=== PATIENT | male | born 1985 | race American Indian/Alaskan Native ===

== ENCOUNTER 2017-11-29 15:19 | Emergency (ER) | payer OTHER ==
[2017-11-29 15:28] VITALS: BP 120/77
--- NOTE | 2017-11-29 15:44 | Emergency Department Report ---
Upper Extremity - HPI Chief Complaint: Extremity Injury, Upper Stated Complaint: RIGHT HAND PAIN Time Seen by Provider: 11/29/17 15:44 Upper Extremity: Left Hand, Left Index Finger Occurred When: >5 Days Severity: moderate Symptoms: Yes Pain with Movement, Yes Swelling, No Deformity, No Limited Range of Movement, No Numbness, No Weakness, No Bruising/Ecchymosis, No Laceration or Abrasion Other History: 32-year-old male past medical history none presents with complaint of right index finger pain. Patient states he sprained his finger while playing basketball. States that the ball hit his finger on his finger was extended and jammed it. This occurred a week ago. States he has some aching when he flexes and extends his finger. Denies injury to any other body part. Visibly ranging all his fingers. ED Review of Systems ROS: Stated complaint: RIGHT HAND PAIN Other details as noted in HPI Constitutional: denies: chills, fever Eyes: denies: eye pain, eye discharge, vision change ENT: denies: ear pain, throat pain Respiratory: denies: cough, shortness of breath, wheezing Cardiovascular: denies: chest pain, palpitations Endocrine: no symptoms reported Gastrointestinal: denies: abdominal pain, nausea, diarrhea Genitourinary: denies: urgency, dysuria Musculoskeletal: as per HPI (right index finger pain at MCP joint). denies: back pain, joint swelling, arthralgia Skin: denies: rash, lesions Neurological: denies: headache, weakness, paresthesias Psychiatric: denies: anxiety, depression Hematological/Lymphatic: denies: easy bleeding, easy bruising ED Past Medical Hx - Past Medical History Previous Medical History?: No - Surgical History Past Surgical History?: No - Social History Smoking Status: Current Every Day Smoker Substance Use Type: Alcohol - Medications Home Medications: Home Medications Medication Instructions Recorded Confirmed Last Taken Type Acetaminophen/Codeine [Tylenol #3] 1 tab PO Q6H PRN #15 tab 09/19/13 Unknown Rx Methocarbamol [Robaxin] 750 mg PO Q8H PRN #15 tablet 09/19/13 Unknown Rx Naproxen Sodium (Nf) [Anaprox DS] 550 mg PO BID PRN #10 tablet 09/19/13 Unknown Rx Ibuprofen [Motrin] 800 mg PO Q8HR PRN #20 tablet 11/29/17 Unknown Rx Upper Extremity Exam - Exam General: Vital signs noted. No distress. Alert and acting appropriately. Head and Torso: No HEENT Abnormality, No Neck Tenderness, No Chest/Lungs Abnormality, No Abdominal Tenderness, No Back Tenderness Shoulder Exam: Yes Normal Range of Motion in Shoulder, No Shoulder Tenderness, No Clavicle Tenderness, No Shoulder Deformity, No AC Joint Tenderness Arm Exam: No Arm/Humerus Tenderness, No Arm Deformity Elbow: No Elbow Tenderness, No Normal Range of Motion in Elbow, No Elbow Deformity Forearm: No Forearm Tenderness, No Forearm Deformity, No Pain with Pronation, No Pain with Supination Wrist: Yes Normal ROM in Wrist (right wrist flexion and extension intact), No Wrist Tenderness, No Wrist Deformity, No Snuffbox Tenderness (is no snuffbox tenderness), No Pain with Axial Thumb Compression Hand: Yes Normal ROM in Digit(s) (range of motion right hand and fingers fully intact), No Hand Tenderness, No Hand Deformity, No Digit Tenderness, No Digit(s ) Deformity, No Tendon Dysfunction CMS Exam: Yes Normal Distal Pulses (distal radial brachial pulses strong to palpation), Yes Normal Capillary Refill (distal capillary refill less than one second all fingers), Yes Normal Distal Sensation, No Broken Skin Hand L/R Back: 1 - Pain and discomfort on deep palpation ED Course Vital Signs 11/29/17 15:26 Temperature 98.8 F Pulse Rate 74 Respiratory 16 Rate Blood Pressure 120/77 [Left] O2 Sat by Pulse 99 Oximetry ED Medical Decision Making - Medical Decision Making A/P: Right index finger sprain 1-RICE therapy, Motrin when necessary 2-finger splints 3-x-ray shows no fracture Critical care attestation.: If time is entered above; I have spent that time in minutes in the direct care of this critically ill patient, excluding procedure time. ED Disposition Clinical Impression: Sprain of right index finger Qualifiers: Encounter type: initial encounter Sprain of finger site: metacarpophalangeal joint Qualified Code(s): S63.650A - Sprain of metacarpophalangeal joint of right index finger, initial encounter Disposition: DC-01 TO HOME OR SELFCARE Is pt being admited?: No Does the pt Need Aspirin: No Condition: Stable Instructions: Finger Sprain (ED) Prescriptions: Ibuprofen [Motrin] 800 mg PO Q8HR PRN #20 tablet PRN Reason: Pain Referrals: PRIMARY CARE, [Primary Care Provider] - 3-5 Days [facility] [Provider Group] - 3-5 Days Forms: Work/School Release Form(ED) Time of Disposition: 16:44
[2017-11-29] MEDS ORDERED: MOTRIN PO ONE (15:49)
[2017-11-29] MEDS ORDERED: MOTRIN ONE (15:50)
--- NOTE | 2017-11-29 16:29 | XRay Report ---
FINAL REPORT PROCEDURE: XR HAND 3+V RT TECHNIQUE: Right hand radiographs, AP, lateral, and oblique views. CPT 01845 HISTORY: right index finger and hand pain COMPARISON: No prior studies are available for comparison. FINDINGS: Fracture (s) and/or Dislocation(s): None . Alignment: Normal . Joint space(s): Normal . Soft tissues: Normal . Bone mineralization: Normal . Foreign bodies: None . IMPRESSION: Negative examination.
== END 2017-11-29 17:10 | disposition home or self-care (01) ==
LOC: ED 15:19
DX: S63.610A Unspecified sprain of right index finger, initial encounter (principal); F17.200 Nicotine dependence, unspecified, uncomplicated; W22.8XXA Striking against or struck by other objects, initial encounter; Y93.67 Activity, basketball; Y92.89 Other specified places as the place of occurrence of the external cause; Y99.8 Other external cause status
CPT/HCPCS: 99283